=== PATIENT | male | born 1970 | race African-American/Black ===

== ENCOUNTER 2021-12-21 16:53 | Emergency (ER) | payer MEDICAID ==
[~2021-12-21] VITALS: Ht 182.9 cm; Wt 104.0 kg
[2021-12-21] MEDS ORDERED: CEFTRIAXONE SODIUM 1 G/VIAL IM ONE (17:30)
[2021-12-21] MEDS ORDERED: LIDOCAINE HCL 1% 20ML VIAL (Pyxis) INJ INFIL ONE (17:30)
[2021-12-21] MEDS ORDERED: KETOROLAC 60MG/2ML VIAL IM ONE (17:30)
[2021-12-21 18:15] LABS: BASOPHILS % 0.8 % (0.0-2.0); EOSINOPHILS % 0.5 % (0.0-5.0); HEMATOCRIT. 39.3 % (42.0-52.0); HEMOGLOBIN. 13.1 g/dL (14.0-18.0); LYMPHOCYTES % 13.5 % (20.0-50.0); MEAN CORPUSCULAR HEMOGLOBIN 29.6 pg (28.0-32.0); MEAN CORPUSCULAR VOLUME 88.7 fL (80.0-94.0); MEAN PLATELET VOLUME 7.9 fl (7.4-10.4); MONOCYTES % 6.5 % (2.0-8.0); NEUTROPHILS % 78.7 % (40.0-76.0); PLATELET 378 x1000/uL (130-400); RED BLOOD CELL COUNT 4.43 mill/uL (4.7-6.1); RED CELL DISTRIBUTION WIDTH 12.8 % (11.6-14.6)
[2021-12-21 18:19] LABS: CHLORIDE 101 mEq/L (98-107)
[2021-12-21 20:10] LABS: CLARITY URINE CLEAR (CLEAR); COLOR URINE YELLOW (YELLOW); KETONES URINE NEGATIVE (NEGATIVE); LEUKOCYTE ESTERASE URINE NEGATIVE (NEGATIVE); NITRITE URINE NEGATIVE (NEGATIVE); OCCULT BLOOD URINE NEGATIVE (NEGATIVE); PROTEIN URINE NEGATIVE (NEGATIVE); SPECIFIC GRAVITY URINE 1.023 (1.005-1.030)
[2021-12-21] MEDS ORDERED: IBUP-2028 MT (21:12)
[2021-12-21] MEDS ORDERED: SULF1TAB48 MT (21:12)
[2021-12-21] MEDS ORDERED: CEPH500C2 MT (21:12)
[2021-12-21 21:30] VITALS: BP 121/68
== END 2021-12-21 22:09 | disposition home or self-care (01) ==
LOC: ER 16:53
DX: M54.9 Dorsalgia, unspecified (principal); E11.9 Type 2 diabetes mellitus without complications
CPT/HCPCS: 36415; 72100; 74176; 80053; 81003; 83690; 85025; 96372; 99285; J0696; J1885; J3490